=== PATIENT | female | born 1955 | race Caucasian/White ===

== ENCOUNTER → 2016-03-28 | Outpatient (CLI) | payer BC | END | disposition home or self-care (01) | LOC: C.MAMM 12:26 | PROVIDERS: ATTEND Family Medicine | DX: M81.0 Age-related osteoporosis without current pathological fracture (principal) ==

== ENCOUNTER → 2016-12-30 | Outpatient (CLI) | payer BC ==
--- NOTE | 2016-12-30 09:36 | DIAGNOSTIC IMAGING REPORT ---
SINGLE VIEW PELVIS; 2 VIEWS RIGHT HIP CLINICAL HISTORY: Fall from horse several days ago. Right hip pain. FINDINGS: An AP view of the pelvis with AP and frog-leg views of the right hip are obtained. No prior studies are available for comparison at the time of dictation. The skeletal structures are osteopenic. There is no radiographic evidence of fracture involving the hips or bony pelvis. Minimal sclerotic change is noted in the left sacroiliac joint. The joint spaces of the hips are preserved. The overlying soft tissues are within normal limits. There are pelvic phleboliths. Moderate colonic fecal retention is noted. IMPRESSION: There is no radiographic evidence of fracture involving the hips or bony pelvis. Electronically signed by: Dougie Montero M.D. 12/30/2016 9:35 AM Dictated Date/Time: 12/30/2016 9:34 AM
--- NOTE | 2016-12-30 09:45 | DIAGNOSTIC IMAGING REPORT ---
LUMBAR SPINE 5 VIEWS CLINICAL HISTORY: Low back pain. Recent fall. FINDINGS: 5 views of lumbar spine are obtained. No prior studies are available for comparison at the time of dictation. The skeletal structures are osteopenic. There is no radiographic evidence of fracture or malalignment involving the lumbar spine. Vertebral body height and alignment are maintained. The transverse and spinous processes appear intact. There is no evidence of spondylolysis. The intervertebral disc spaces appear preserved. Mild facet arthropathy is seen in the lower lumbar region. The bony pelvis is intact as visualized. There is a nonobstructed abdominal bowel gas pattern noting moderate colonic fecal retention. Numerous phleboliths are observed in the pelvis. There is mild atherosclerotic calcification of the abdominal aorta. IMPRESSION: 1. There is no radiographic evidence of fracture or malalignment involving the lumbar spine. 2. Osteopenia and mild spondylotic change as above. Dictated: 12/30/2016 9:32 AM Transcribed: 12/30/2016 9:45 AM [facility] Electronically signed by: Dougie Montero M.D. 12/30/2016 9:48 AM Dictated Date/Time: 12/30/2016 9:32 AM
== END | disposition home or self-care (01) ==
LOC: C.RAD1850 09:03
PROVIDERS: ATTEND Family Medicine
DX: M25.551 Pain in right hip (principal); V80.010A Animal-rider injured by fall from or being thrown from horse in noncollision accident, initial encounter; M85.88 Other specified disorders of bone density and structure, other site

== ENCOUNTER → 2017-07-28 | Outpatient (CLI) | payer OTHER ==
--- NOTE | 2017-07-28 15:25 | MAMMOGRAPHY REPORT ---
BILATERAL DIGITAL SCREENING MAMMOGRAM TOMOSYNTHESIS WITH CAD: 07/28/2017 CLINICAL HISTORY: Routine screening. Patient has no complaints. TECHNIQUE: Breast tomosynthesis in addition to standard 2D mammography was performed. Current study was also evaluated with a Computer Aided Detection (CAD) system. COMPARISON: Comparison is made to exams dated: 07/18/2016 mammogram, 07/17/2015 mammogram, 07/15/2014 mamm ogram, 07/14/2013 mammogram, 07/13/2012 mammogram, and 07/11/2011 mammogram - [facility] er. BREAST COMPOSITION: The tissue of both breasts is heterogeneously dense, which may obscure small mas ses. FINDINGS: A linear scar marker overlies the superior left breast. There are a few stable punctate mi crowd controller calcifications and minimal vascular calcification in the breasts. No suspicious mass, architectu ral distortion or cluster of microcalcifications is seen. IMPRESSION: ACR BI-RADS CATEGORY 1: NEGATIVE There is no mammographic evidence of malignancy. A 1 year screening mammogram is recommended. The pa tient will receive written notification of the results. Approximately 10% of breast cancers are not detected with mammography. A negative mammographic report should not delay biopsy if a clinically suggestive mass is present. Dorita Araujo M.D. ay/:07/28/2017 07:52:08 Director [employer]: Bibi REYES)(M), [facility] letter sent: Normal 1/2 BI-RADS Code: ACR BI-RADS Category 1: Negative
== END | disposition home or self-care (01) ==
LOC: C.MAMM 07:14
PROVIDERS: ATTEND Family Medicine
DX: Z12.31 Encounter for screening mammogram for malignant neoplasm of breast (principal)